=== PATIENT | female | born 1965 | race Caucasian/White ===

== ENCOUNTER 2019-03-22 15:38 | Emergency (ER) | payer OTHER, SELFPAY ==
[2019-03-22 15:39] VITALS: BP 137/75; PULSE 133; RESP 20; TEMP 39.5; O2SAT 94; BMI 21.3
--- NOTE | 2019-03-22 15:57 | RAD_ITS ---
STUDY: X-RAY CHEST REASON FOR EXAM: Female, 53 years old. FEVER, COUGH, AND BODY ACHES TECHNIQUE: PA and lateral COMPARISON: None. FINDINGS: There is linear scarring or discoid atelectasis at the left base. Lungs are otherwise clear.. There is no demonstrated pleural abnormality. Normal size heart. Normal mediastinum and margaret. Normal visualized pulmonary arteries. Normal visualized aortic arch and descending thoracic aorta. Dorsal spine demonstrates scoliosis and degenerative change. Normal visualized ribs, clavicles, and shoulders. There is no demonstrated abnormality of the visualized soft tissue structures of the upper abdomen. RAD/Chest PA and Lateral IMPRESSION: Probable linear scarring or discoid atelectasis at left base. Electronically Signed: Chaim Velazquez MD at 16:32 EST , Service support ,
[2019-03-22] MEDS: Ibuprofen 600 MG Tablet PO (16:15)
--- NOTE | 2019-03-22 16:36 | ED.DCSUM_ITS ---
- ER Visit Summary Date of Service: 03/22/19 Chief Complaint: Fever History of Present Illness: The patient is a 53 F with no primary care physician. She reports that she has a fever that began yesterday. Is been 104.4 degrees. She said chills, cold sweats, myalgias. She reports that she has a mild cough that is productive sputum without blood. She is been nausea and vomited once. She reports that she has a headache that is 4-10 currently and 9 out of 10 with coughing. She complains of generalized weakness. She did not get a flu shot this year. Physical Examination: Vitals: 103.1, 137/75, 133, 20, 94% on room air which is not hypoxic. General: Well-nourished and well-developed. Head: Normocephalic atraumatic. HEENT: Pharyngeal erythema. No tonsillar exudate or enlargement. No peritonsillar abscess. Neck: Supple, no lymphadenopathy. No JVD. Nontender. Cardiovascular: Tachycardic regular rhythm. No murmurs. Respiratory: No respiratory distress. Clear to auscultation bilaterally. Abdominal: Soft, nontender, nondistended, normal bowel sounds. No guarding, re bound, or peritoneal signs. Back: Nontender. Extremities: Nontender, no edema. Skin: Normal color, no rash. Neurologic: Alert and oriented ?3. Cranial nerves II through XII are intact. Normal strength and sensation. Psych: Normal affect. Test Results: Clinical Impression(s) from Imaging Studies Chest X-Ray 03/22/19 15:57 IMPRESSION: Probable linear scarring or discoid atelectasis at left base. Electronically Signed: Chaim Velazquez MD at 16:32 EST , Service support , Emergency Department Course and Treatment: Had prolonged/patient that she clinically has influenza. I do not think that testing is indicated. She refused Tamiflu. She refused an IV and fluids. She was given ibuprofen p.o. Treatment Plan: Patient will be discharged with instructions to push fluids. She is instructed to alternate Tylenol and ibuprofen to control her fever. Follow-up Dr. Tirado in 1 week if not improving. Return to the emergency department for any worsening symptoms. Disposition: To home in improved and stable condition. Impression: 1. Influenza. This note was generated with [employer] dictation software. It may contain incorrect words, spelling, and punctuation that were not noted in review of the chart prior to signing ED Disposition - Plan for ED Patient: Instructions: INFLUENZA (Adult) Referrals: Mary Tirado MD [STAFF PHYSICIAN] - 1 Week if not improving Additional Instructions: Alternate 1000 mg of tylenol every 6 hours and 600 mg of ibuprofen every 6 hours.
[2019-03-22 16:54] VITALS: BP 115/74; PULSE 108; RESP 18; TEMP 39.2; O2SAT 94
== END 2019-03-22 16:54 | disposition home or self-care (01) ==
LOC: ED 16:09
PROVIDERS: Emergency Provider Emergency Medicine
DX: J11.1 Influenza due to unidentified influenza virus with other respiratory manifestations (principal); M06.9 Rheumatoid arthritis, unspecified; Z72.0 Tobacco use
CPT/HCPCS: 71046; 99283

== ENCOUNTER → 2022-05-19 | Outpatient (CLI) | payer MEDICAID, SELFPAY ==
[2022-05-19 09:48] LABS: Absolute Lymphocyte Count 3.17 X10^3/uL (0.83-4.51); Basophil# 0.04 X10^3/uL; Basophil% 0.4 % (0-1); Eosinophil# 0.07 X10^3/uL; Eosinophils% 0.7 % (0-5); Hematocrit 49.1 % (37-47); Hemoglobin 15.7 g/dL (12.0-15.0); Lymphocyte # 3.17 X10^3/ul (0.83-4.51); Lymphocyte % 31.1 % (19-41); Mean Corpuscular Hgb 31.2 pg (27.0-32.0); Mean Corpuscular Volume 97.4 fL (81-99); Mean Platelet Vol. 10.5 fl (6.2-12.0); Monocyte% 7.9 % (0-10); NRBC Flagged by Analyzer 0 % (0-5); Neutrophil # 6.04 X10^3/uL (2.7-7.7); Neutrophil % 59.2 % (47-70); Platelet Count 287 K/mm3 (150-450); RBC Distribution Width CV 13.2 % (11.6-14.6); RBC Distribution Width SD 47.8 fl (35.1-43.9); Red Blood Count 5.04 M/mm3 (4.2-5.4); White Blood Count 10.2 K/mm3 (4.4-11.0)
[2022-05-19 10:27] LABS: Hemoglobin A1c 5.2 % (3.8-5.6); Vitamin D,25 Hydroxy 38.5 ng/mL
[2022-05-19 10:40] LABS: AST(SGOT) 26 U/L (15-37); Alanine Aminotransfer ALT/SGPT 38 U/L (13-56); Alkaline Phosphatase 69 U/L (45-117); Anion Gap 9 (5-15); BUN 22 mg/dL (7-18); BUN/Creat Ratio 25.7 RATIO (10-20); Calcium,Total 10.1 mg/dL (8.5-10.1); Chloride 103 mmol/L (98-107); Cholesterol 251 mg/dL (200); Creatinine, Serum 0.86 mg/dL (0.55-1.02); EST Glomerular Filtration Rate 73 mL/min (>60); Est Glom Filt Rate - Afr Amer 88 mL/min (>60); Globulin 3.9 g/dL (2.2-4.2); Glucose 90 mg/dL (74-106); High Density Lipoprotein 70 mg/dL; Potassium 3.4 mmol/L (3.5-5.1); Protein, Total 7.9 g/dL (6.4-8.2); Sodium Level 140 mmol/L (136-145); Thyroid Stim Hormone (TSH) 1.62 uIU/mL (0.358-3.74); Triglycerides 184 mg/dL; Very Low Density Lipoprotein 37 mg/dL (5-40)
== END | disposition home or self-care (01) ==
PROVIDERS: Referring Provider Nurse Practitioner Family; Visit Provider Nurse Practitioner Family
DX: Z00.00 Encounter for general adult medical examination without abnormal findings (principal)
CPT/HCPCS: 36415; 80053; 80061; 82306; 83036; 84443; 85025

== ENCOUNTER → 2022-05-27 | Outpatient (CLI) | payer MEDICAID, SELFPAY ==
--- NOTE | 2022-05-27 14:51 | BI_ITS ---
MAMMOGRAPHY - BILATERAL SCREENING REASON FOR EXAM: Female, 56 years old. Routine annual screening examination. PERTINENT HISTORY: Aunt with breast cancer. TECHNIQUE: Digital bilateral breast jesu (3D mammographic acquisition) in the CC and MLO projections. 2-D mediolateral oblique (MLO) and craniocaudad (CC) views of both breasts were obtained. CAD: Full Field Digital Mammography with Computer Added Detection was performed. COMPARISON: No comparison mammograms available at this time. If any prior films become available, an addendum to this report can be generated. FINDINGS: Breast Composition: The breasts are heterogeneously dense, which may obscure small masses. There are no dominant masses or suspicious calcifications. No other significant abnormalities are identified. BI/SCRN MAMM (CAD)W/JESU BILAT IMPRESSION: Negative screening mammogram. Yearly followup mammogram recommended. (A) ASSESSMENT CATEGORY: BIRADS Category 1: Negative. A letter regarding these results will be sent to the patient by the facility within 30 days. Approximately 10% of breast cancers are not detected by mammography. A normal mammogram should not delay biopsy of a clinically suspicious abnormality. [id number] Electronically Signed: Blayne Basilio MD at 15:39 EDT ,
== END | disposition home or self-care (01) ==
LOC: OPBI 14:49
PROVIDERS: Visit Provider Nurse Practitioner Family
DX: Z12.31 Encounter for screening mammogram for malignant neoplasm of breast (principal)
CPT/HCPCS: 77063; 77067

== ENCOUNTER 2022-05-30 05:52 | Day surgery (SDC) | payer MEDICAID, SELFPAY ==
[2022-05-30 06:41] VITALS: BP 126/85; PULSE 80; RESP 16; TEMP 36.6; O2SAT 98; BMI 24.6
[2022-05-30] MEDS: Lactated Ringers 1,000 ML 15 ML IV (06:51)
--- NOTE | 2022-05-30 07:23 | HP.PCM_ITS ---
HPI - General General Date of Admission: 05/30/22 HPI Narrative CASSIE ERNANDEZ, is a 56 F who presents for screening colonoscopy due to history of colon polyps. Patient had colonoscopy about 5 to 6 years ago states she was post come back in 3 years however was unable to due to insurance. Patient has bowel movements daily denies any blood. Patient denies any family history of colon cancer. Patient denies any chronic abdominal pain/nausea/vomiting/reflux. [facility] Medical History (Updated 05/30/22 @ 07:[address] Benita Basurto MD) Alcohol use Anemia Anxiety Depression High cholesterol History of steroid therapy Migraine headache Rheumatoid arthritis Smoker Wears dentures Wears glasses Wears partial dentures Home Medications [id number] 333 mg-133 mg-8.3 mg tablet 1 tab PO DAILY 05/23/22 [History Last Taken Unknown] milk thistle 150 mg capsule 150 mg PO DAILY 05/23/22 [History Last Taken Unknown] multivitamin 1 tab PO DAILY 05/23/22 [History Last Taken Unknown] rosuvastatin 10 mg tablet 5 mg PO DAILY 05/23/22 [History Last Taken Unknown] Allergy/AdvReac Type Severity Reaction Status Date / Time cephalexin monohydrate Allergy Rash Verified 05/30/22 06:41 [From Keflex] ketorolac tromethamine Allergy Other Verified 05/30/22 06:41 [From Toradol] penicillin V Allergy Rash Verified 05/30/22 06:41 Penicillins Allergy Rash Verified 05/30/22 06:41 Surgical History History of colonoscopy Social History (Updated 05/23/22 @ 16:47 by Fallon An) current occupational status: employed Smoking Status: Current every day smoker tobacco type: cigarettes Past Medical/Surgical History Planned Operation Planned Operative Procedure/s: CSCOPE Previous Hospitalizations/Surgeries HX Hospitalizations: No Any Problems With Anesthesia: No You/Your Family Experience Fever (Hyperthermia) With Anes: No Cholinesterase deficiency: No Cardiovascular Hx Hypertension: No Respiratory Hx Sleep Apnea: No Hx Respiratory Tract Infection/Cold (presently): No Do You Snore Loudly (louder than talking or can be heard): No Do You Often Feel Tired/ Fatigued/ Sleepy Dring Daytime?: No Has Anyone Observed You Stop Breathing During Sleep?: No Result (for STOP score): Negative Smoking Status: Current every day smoker Neurological Does patient have nerve stimulator: No Reproduction : No Miscellaneous Recent Exposure to Contagious Disease: No Allergies cephalexin monohydrate [From Keflex] Allergy (Verified 05/30/22 06:41) Rash ketorolac tromethamine [From Toradol] Allergy (Verified 05/30/22 06:41) Other Vertigo, Tinnitus,Visual disturbance penicillin V Allergy (Verified 05/30/22 06:41) Rash Penicillins Allergy (Verified 05/30/22 06:41) Rash Discharge Is Pt Admitted From a Retirement, or a Jail: No After D/C, Where Do you Plan to Go: Return Home Vital Signs Vital Signs Vital Signs: 05/30/22 06:41 05/30/22 06:41 Temperature 97.9 F Temperature Source Temporal Pulse Rate 80 Respiratory Rate 16 Respiratory Pattern Normal Blood Pressure 126/85 H Blood Pressure Mean 98 Blood Pressure Source Monitor Blood Pressure Position Semi-Fowlers Blood Pressure Location Left Arm Pulse Ox 98 Oxygen Delivery Method Room Air Weight Weight: 152 lb 12.485 oz Body Mass Index (BMI) 24.6 Physical Exam Const alert, oriented x3 and no apparent distress HEENT normocephalic and head/scalp atraumatic Resp normal respiratory effort Cardio regular rate GI soft to palpation and non-tender; Negative for non-distended Palpation: Negative for guarding Extremity no clubbing, cyanosis or edema Neuro CN's II-XII intact bilaterally Psych mental status grossly normal Assessment & Plan Assessment/Plan (1) Hx of colonic polyps: Surgery Risks - Colonoscopy Risks Include but are not Limited To: Risks include but are not limited to: Bleeding, perforation requiring further surgery, inability to complete colonoscopy requiring barium enema. Patient no further question this time.
--- NOTE | 2022-05-30 07:30 | COLBX_PTH ---
PATIENT: CASSIE ERNANDEZ LOC: EN U#:[id number] AGE/SX: 56/F ROOM: RE05/30/[address]: Dr. Benita Basurto MD : 1965 BED: DIS: 05/30/2022 SPEC #: [id number] RECD: 05/30/22 10:17 STATUS: ROSSANA SARAH #: [id number] CHAMP: 05/30/22 07:[address]: Benita Basurto DEPT: SURGICAL PATHOLOGY RECD BY: Mariela Gillis ENTERED: 05/30/22 13:06 SP TYPE: COLON BX OT DR: Tameka [facility] Tissues: A - Descending colon B - Sigmoid colon biopsy C - Rectum, NOS Procedures: Surgery Specimen Level IV HEADER OPERATION: Colonoscopy ? open access (MAC) PRE-OP DIAGNOSIS: History of colonic polyps TISSUE SUBMITTED: A - Biopsy of polyp descending colon, B - Biopsy polyps sigmoid colon, C - Biopsy polyp rectum MICROSCOPIC DIAGNOSIS A. Descending colon polyp, biopsy: Fragments of tubular adenoma. B. Sigmoid colon polyps, biopsy: Fragments of tubular adenoma. C. Rectal polyp, biopsy: Fragments of hyperplastic polyp. AM:ron 06/02/2022 MICROSCOPIC DESCRIPTION Slides are reviewed. GROSS DESCRIPTION A - Received in fixative is one container labeled with the patient's name and designated descending colon polyp. The specimen consists of two irregular fragments of light vance soft tissue that in aggregate measure 0.6 x 0.6 x 0.1 cm. The specimen is totally submitted in one cassette. B - Received in fixative is one container labeled with the patient's name and designated sigmoid polyp. The specimen consists of multiple irregular fragments of light vance soft tissue that in aggregate measure 1.0 x 0.5 x 0.1 cm. The specimen is totally submitted in one cassette. C - Received in fixative is one container labeled with the patient's name and designated rectal polyp. The specimen consists of two irregular fragments of light vance soft tissue that in aggregate measure 0.6 x 0.6 x 0.1 cm. The specimen is totally submitted in one cassette. / GILBERT:ron 05/30/2022 TC:5 CPT: 13114 x3
[2022-05-30 08:15] VITALS: BP 126/85; BP 84/50; PULSE 68; RESP 16; TEMP 36; O2SAT 100
[2022-05-30 08:20] VITALS: BP 100/71; BP 126/85; PULSE 66; RESP 16; O2SAT 100
--- NOTE | 2022-05-30 08:22 | OP.CCLET_ITS ---
[facility] This procedure was performed on Monday, May 30, 2022. My impressions and recommendations are as follows: Impressions : - Hemorrhoids found on perianal exam. - Non-bleeding internal hemorrhoids. - Five less than 5 mm polyps in the rectum, in the sigmoid colon and in the descending colon, removed with a cold biopsy forceps. Resected and retrieved. - The examination was otherwise normal. Recommendations : - Discharge patient to home. - Resume previous diet. - Continue present medications. - Await pathology results. - Repeat colonoscopy in 3 - 5 years for surveillance based on pathology results. My findings are described in the full procedure note, which is enclosed. If I can be of further assistance, please feel free to contact me at Doctor phone number(s): , Work: . Sincerely, MD Benita Glaser MD 05/30/2022 8:21:21 AM This report has been signed electronically.
--- NOTE | 2022-05-30 08:22 | OP.COLON_ITS ---
Patient Name: Indira Branch Procedure Date: 05/30/2022 7:23 AM Date of : 1965 Age: 56 Procedure: Colonoscopy Indications: High risk colon cancer surveillance: Personal history of colonic polyps Providers: Benita Basurto MD Referring MD: Tameka Brown [facility] Medicines: Monitored Anesthesia Care Patient Profile: This is a 56 year old female. Last Colonoscopy: 5 years ago. Complications: No immediate complications. Procedure: Pre-Anesthesia Assessment: - Prior to the procedure, a History and Physical was performed, and patient medications and allergies were reviewed. The patient's tolerance of previous anesthesia was also reviewed. The risks and benefits of the procedure and the sedation options and risks were discussed with the patient. All questions were answered, and informed consent was obtained. Prior Anticoagulants: The patient has taken no previous anticoagulant or antiplatelet agents. ASA Grade Assessment: Per anesthesia. After reviewing the risks and benefits, the patient was deemed in satisfactory condition to undergo the procedure. After I obtained informed consent, the scope was passed under direct vision. Throughout the procedure, the patient's blood pressure, pulse, and oxygen saturations were monitored continuously. The Colonoscope was introduced through the anus and advanced to the cecum, identified by the appendiceal orifice, ileocecal valve and palpation. The colonoscopy was performed without difficulty. The patient tolerated the procedure well. The quality of the bowel preparation was good. Scope In: 7:35:33 AM Scope Withdrawal Time 0 hours 24 minutes 48 seconds Scope Out: 8:11:56 AM Total Procedure Duration Time 0 hours 36 minutes 23 seconds Findings: Hemorrhoids were found on perianal exam. Non-bleeding internal hemorrhoids were found. The hemorrhoids were Grade I (internal hemorrhoids that do not prolapse). Five sessile polyps were found in the rectum, sigmoid colon and descending colon. The polyps were less than 5 mm in size. These polyps were removed with a cold biopsy forceps. Resection and retrieval were complete. The exam was otherwise without abnormality. Impression: - Hemorrhoids found on perianal exam. - Non-bleeding internal hemorrhoids. - Five less than 5 mm polyps in the rectum, in the sigmoid colon and in the descending colon, removed with a cold biopsy forceps. Resected and retrieved. - The examination was otherwise normal. Recommendation: - Discharge patient to home. - Resume previous diet. - Continue present medications. - Await pathology results. - Repeat colonoscopy in 3 - 5 years for surveillance based on pathology results. Procedure Code(s): --- Professional --- 66783, PT, Colonoscopy, flexible; with biopsy, single or multiple Diagnosis Code(s): --- Professional --- Z86.010, Personal history of colonic polyps K64.0, First degree hemorrhoids K62.1, Rectal polyp D12.5, Benign neoplasm of sigmoid colon D12.4, Benign neoplasm of descending colon CPT copyright 2017 [employer]. All rights reserved. The codes documented in this report are preliminary and upon peoplesoft developer review may be revised to meet current compliance requirements. MD Benita Glaser MD 05/30/2022 8:21:21 AM This report has been signed electronically. Number of Addenda: 0 Note Initiated On: 05/30/2022 7:23 AM
[2022-05-30 08:25] VITALS: BP 105/76; BP 126/85; PULSE 70; RESP 70; O2SAT 100
[2022-05-30 08:30] VITALS: BP 111/75; BP 126/85; PULSE 69; RESP 16; TEMP 36; O2SAT 100
[2022-05-30 08:50] VITALS: BP 126/85
== END 2022-05-30 08:56 | disposition home or self-care (01) ==
LOC: EN 05:52 → AC 05:54
PROVIDERS: Visit Provider Surgery
PROC: 0DJD8ZZ Inspection of Lower Intestinal Tract, Via Natural or Artificial Opening Endoscopic (ICD-10-PCS; CPT 45378; principal; 2022-05-30 07:25)
DX: Z12.11 Encounter for screening for malignant neoplasm of colon (principal); K64.0 First degree hemorrhoids; E78.00 Pure hypercholesterolemia, unspecified; Z86.010 Personal history of colon polyps; K62.1 Rectal polyp; F17.210 Nicotine dependence, cigarettes, uncomplicated; D12.5 Benign neoplasm of sigmoid colon; D12.4 Benign neoplasm of descending colon
CPT/HCPCS: 45380; 88305; J7120; J2405

== ENCOUNTER → 2022-06-04 | Outpatient (CLI) | payer MEDICAID, SELFPAY ==
--- NOTE | 2022-06-04 14:23 | CT_ITS ---
STUDY: LOW DOSE CT LUNG CANCER SCREENING REASON FOR EXAM: Female, 56 years old. Patient smokes 1 pack per day for 40 years. RADIATION DOSAGE (If Supplied By Facility): CTDIvol = ( 3.02 ) mGy, DLP = ( 102.69 ) mGycm TECHNIQUE: No contrast was administered. Low dose technique was utilized (average mAS-38 and kVp 120). 1.25 mm axial source images with a slice interval of 1.25-mm were reconstructed in lung windows. 2.5 mm axial source images with a slice interval of 2.5-mm were reconstructed in lung windows. 5.0 mm axial source images with a slice interval of 5.0-mm were reconstructed in soft tissue windows. COMPARISON: None. NODULES: No suspicious nodules are seen. Emphysema: Hyperinflation. Emphysematous changes more prominent in the upper lobes with centrilobular emphysematous changes. Mild degree of increased markings at the lung bases suggestive of a mild bibasilar scarring. There is also evidence of mild scarring in the anterior medial aspect of the right middle lobe. Endobronchial lesion: Unremarkable. Aorta: Minimal atherosclerotic plaque formation of the aortic arch. CORONARY ARTERIES: Coronary artery calcification is seen. Heart: Unremarkable. Pulmonary artery: Unremarkable. Mediastinal nodes: Small mediastinal lymph nodes. Other chest and abdominal findings: CT/Low Dose CT Lung Screening IMPRESSION: Lung-RADS category 2 - Continue annual screening with LDCT in 12 months. IMPORTANT NOTES FOR USE: ACR Lung-RADS Version 1.1 Assessment Categories Release Date: 2018 Category: Coded 0-4 bases on nodule(s) with highest degree of suspicion. Negative screen is defined as categories 1 and 2; a positive screen is defined as categories 3 and 4. Category 3 and 4A nodules that are unchanged on interval CT should be coded as category 2, and individuals returned to screening in 12 months. Category 4X: Category 3 or 4 nodules with additional imaging findings that increase the suspicion of lung cancer, such as spiculation, GGN that doubles in size in 1 year, enlarged lymph notes, etc. Category Modifiers: S (significant finding unrelated to lung cancer) Electronically Signed: Blayne Basilio MD at 15:33 EDT ,
== END | disposition home or self-care (01) ==
LOC: CT 14:21
PROVIDERS: Referring Provider Nurse Practitioner Family; Visit Provider Nurse Practitioner Family
DX: F17.290 Nicotine dependence, other tobacco product, uncomplicated (principal)
CPT/HCPCS: 71271

== ENCOUNTER → 2022-06-25 | Outpatient (CLI) | payer MEDICAID, SELFPAY ==
--- NOTE | 2022-06-25 14:56 | RAD_ITS ---
INDICATION: THUMB PAIN, LIMITED RANGE OF MOTION, HX OF RA EXAMINATION/TECHNIQUE: X-RAY - RIGHT XR Hand Min 3 Views 0 VIEWS COMPARISON: FINDINGS: SOFT TISSUES: No soft tissue swelling or gas. No radiopaque foreign body. BONES/JOINTS: Moderate osteoarthritis at articulation greater multangular base first metacarpal. Mild osteoarthritis first MCP and IP joints. Remainder bones and joints intact. RAD/Hand Min 3 Views IMPRESSION: Mild osteoarthritis first MCP and first IP joint. Moderate osteoarthritis articulation greater multangular with base of first metacarpal. Electronically Signed: Kirk Joseph MD, RYAN at 17:38 EDT ,
[2022-06-25 15:35] LABS: Erythrocyte Sedimentation Rate 30 mm/hr (0-30)
[2022-06-25 15:59] LABS: CRP < 2.90 mg/L (0.0-3.0); Uric Acid 4.3 mg/dL (2.6-6.0)
== END | disposition home or self-care (01) ==
LOC: LAB 14:19
PROVIDERS: Referring Provider Nurse Practitioner Family; Visit Provider Nurse Practitioner Family
DX: M79.644 Pain in right finger(s) (principal)
CPT/HCPCS: 36415; 73130; 84550; 85652; 86140

== ENCOUNTER → 2022-08-20 | Outpatient (CLI) | payer MEDICAID, SELFPAY ==
[2022-08-20 09:56] LABS: Cholesterol 154 mg/dL (200); High Density Lipoprotein 70 mg/dL; Magnesium 2.5 mg/dL (1.6-2.6); Potassium 3.9 mmol/L (3.5-5.1); Triglycerides 104 mg/dL; Very Low Density Lipoprotein 21 mg/dL (5-40)
== END | disposition home or self-care (01) ==
LOC: LAB 08:35
DX: E78.5 Hyperlipidemia, unspecified (principal); R00.2 Palpitations
CPT/HCPCS: 36415; 80061; 83735; 84132

== ENCOUNTER → 2022-09-04 | Outpatient (CLI) | payer MEDICAID, SELFPAY | END | disposition home or self-care (01) | LOC: PSN 11:01 | PROVIDERS: Referring Provider Nurse Practitioner Family; Visit Provider Nurse Practitioner Family | DX: R00.2 Palpitations (principal) | CPT/HCPCS: 93225; 93226 ==

== ENCOUNTER → 2023-06-17 | Outpatient (CLI) | payer OTHER, SELFPAY ==
[2023-06-17 08:02] LABS: Absolute Lymphocyte Count 2.31 X10^3/uL (0.83-4.51); Absolute Neutrophil Count 6.1 X10^3/uL (2.0-7.7); Basophil# 0.03 X10^3/uL; Basophil% 0.3 % (0-1); Eosinophil# 0.23 X10^3/uL; Eosinophils% 2.4 % (0-5); Hematocrit 45.2 % (37-47); Hemoglobin 14.6 g/dL (12.0-15.0); Lymphocyte # 2.31 X10^3/ul (0.83-4.51); Lymphocyte % 24.4 % (19-41); Mean Corp Hgb Conc 32.3 g/dL (32-36); Mean Corpuscular Hgb 30.9 pg (27.0-32.0); Mean Corpuscular Volume 95.6 fL (81-99); Mean Platelet Vol. 10.2 fl (6.2-12.0); Monocyte# 0.74 X10^3/uL; Monocyte% 7.8 % (0-10); NRBC Flagged by Analyzer 0 % (0-5); Neutrophil # 6.12 X10^3/uL (2.7-7.7); Neutrophil % 64.7 % (47-70); Platelet Count 262 K/mm3 (150-450); RBC Distribution Width CV 13.6 % (11.6-14.6); RBC Distribution Width SD 48.2 fl (35.1-43.9); Red Blood Count 4.73 M/mm3 (4.2-5.4); White Blood Count 9.5 K/mm3 (4.4-11.0)
[2023-06-17 09:07] LABS: AST(SGOT) 19 U/L (15-37); Alanine Aminotransfer ALT/SGPT 24 U/L (13-56); Alkaline Phosphatase 74 U/L (45-117); Anion Gap 5 (5-15); BUN 13 mg/dL (7-18); BUN/Creat Ratio 16.7 RATIO (10-20); Calcium,Total 9.3 mg/dL (8.5-10.1); Chloride 106 mmol/L (98-107); Cholesterol 265 mg/dL (200); Creatinine, Serum 0.78 mg/dL (0.55-1.02); EST Glomerular Filtration Rate 81 mL/min (>60); Est Glom Filt Rate - Afr Amer 98 mL/min (>60); Globulin 3.9 g/dL (2.2-4.2); Glucose 97 mg/dL (74-106); High Density Lipoprotein 70 mg/dL; Potassium 3.9 mmol/L (3.5-5.1); Protein, Total 7.9 g/dL (6.4-8.2); Sodium Level 138 mmol/L (136-145); Thyroid Stim Hormone (TSH) 0.97 uIU/mL (0.358-3.74); Triglycerides 134 mg/dL; Very Low Density Lipoprotein 27 mg/dL (5-40)
[2023-06-17 09:49] LABS: Hemoglobin A1c 5.2 % (3.8-5.6)
== END | disposition home or self-care (01) ==
LOC: LAB 07:28
PROVIDERS: Visit Provider Nurse Practitioner Family
DX: Z00.00 Encounter for general adult medical examination without abnormal findings (principal); R00.2 Palpitations; E78.5 Hyperlipidemia, unspecified
CPT/HCPCS: 36415; 80053; 80061; 83036; 84443; 85025

== ENCOUNTER → 2023-06-26 | Outpatient (CLI) | payer OTHER, SELFPAY ==
--- NOTE | 2023-06-26 07:12 | BI_ITS ---
MAMMOGRAPHY - BILATERAL SCREENING REASON FOR EXAM: Female, 57 years old. Routine annual screening examination. PERTINENT HISTORY: Aunt with breast cancer. TECHNIQUE: Digital bilateral breast jesu (3D mammographic acquisition) in the CC and MLO projections. 2-D mediolateral oblique (MLO) and craniocaudad (CC) views of both breasts were obtained. CAD: Full Field Digital Mammography with Computer Added Detection was performed. COMPARISON: Comparison is made with prior study dated May 19, 2022. FINDINGS: Breast Composition: The breasts are heterogeneously dense, which may obscure small masses. There are no dominant masses or suspicious calcifications. No other significant abnormalities are identified. There has been no significant change since the prior study. BI/SCRN MAMM (CAD)W/JESU BILAT IMPRESSION: Stable bilateral screening mammogram. Yearly follow-up mammogram recommended. (A) ASSESSMENT CATEGORY: BIRADS Category 1: Negative. A letter regarding these results will be sent to the patient by the facility within 30 days. Approximately 10% of breast cancers are not detected by mammography. A normal mammogram should not delay biopsy of a clinically suspicious abnormality. [id number] Electronically Signed: Blayne Basilio MD at 8:35 EDT ,
== END | disposition home or self-care (01) ==
LOC: OPBI 07:11
PROVIDERS: Referring Provider Nurse Practitioner Family; Visit Provider Nurse Practitioner Family
DX: Z12.31 Encounter for screening mammogram for malignant neoplasm of breast (principal)
CPT/HCPCS: 77063; 77067

== ENCOUNTER → 2023-07-09 | Outpatient (CLI) | payer OTHER, SELFPAY ==
--- NOTE | 2023-07-09 06:53 | CT_ITS ---
STUDY: LOW DOSE CT LUNG CANCER SCREENING REASON FOR EXAM: Female, 57 years old. NICOTINE DEPENDENCE RADIATION DOSAGE (If Supplied By Facility): CTDIvol = ( 2.39 ) mGy, DLP = ( 72.36 ) mGycm TECHNIQUE: No contrast was administered. Low dose technique was utilized (average mAS-38 and kVp 120). 1.25 mm axial source images with a slice interval of 1.25-mm were reconstructed in lung windows. 2.5 mm axial source images with a slice interval of 2.5-mm were reconstructed in lung windows. 5.0 mm axial source images with a slice interval of 5.0-mm were reconstructed in soft tissue windows. COMPARISON: 06/04/2022 Emphysema: Mild bilateral apical scarring. Mild emphysema. No noncalcified nodule or mass. Endobronchial lesion: None Aorta: No thoracic aortic aneurysm. CORONARY ARTERIES: Coronary artery calcification is seen. Heart: No cardiomegaly. Pulmonary artery: Normal Mediastinal nodes: Normal Other chest and abdominal findings: Moderate dextroscoliosis of the thoracic spine with degenerative disc disease. CT/Low Dose CT Lung Screening IMPRESSION: Lung-RADS category 1 - Continue annual screening with LDCT in 12 months. IMPORTANT NOTES FOR USE: ACR Lung-RADS Version 1.1 Assessment Categories Release Date: 2018 Category: Coded 0-4 bases on nodule(s) with highest degree of suspicion. Negative screen is defined as categories 1 and 2; a positive screen is defined as categories 3 and 4. Category 3 and 4A nodules that are unchanged on interval CT should be coded as category 2, and individuals returned to screening in 12 months. Category 4X: Category 3 or 4 nodules with additional imaging findings that increase the suspicion of lung cancer, such as spiculation, GGN that doubles in size in 1 year, enlarged lymph notes, etc. Category Modifiers: S (significant finding unrelated to lung cancer) Electronically Signed: Willy Tay MD at 21:31 EDT ,
== END | disposition home or self-care (01) ==
LOC: CT 06:47
PROVIDERS: Referring Provider Nurse Practitioner Family; Visit Provider Nurse Practitioner Family
DX: Z12.31 Encounter for screening mammogram for malignant neoplasm of breast (principal); F17.290 Nicotine dependence, other tobacco product, uncomplicated
CPT/HCPCS: 71271